=== PATIENT | female | born 1995 | race Caucasian/White ===

== ENCOUNTER → 2022-01-23 | Outpatient (CLI) | payer OTHER ==
[~2022-01-23] MED LIST: CBD OIL SL; DAILY VALUE1 EACH PO; FENUGREEK PO; FLAXSEED OIL PO; GARLIC OIL PO; HYDROCODON-ACE1 EAC2 PO; NAPROSYN500 MG PO; PROAIR HFA8.5 GM INH; VALACYCLOVIR500 MG PO; VITAMIN D3 PO; VITAMIN E200 UNI3 PO; ZOFRAN 4 MG TAB4 MG PO
[2022-01-23 10:49] LABS: HEMOGLOBIN 12.6 gm/dl (12.3-15.3); RED BLOOD COUNT 4.21 M/UL (4.00-5.10); WHITE BLOOD COUNT 5.9 K/UL (4.5-11.0)
== END ==
LOC: OPSV2 09:57
PROVIDERS: Obstetrics & Gynecology
DX: Z01.812 Encounter for preprocedural laboratory examination (principal); N70.11 Chronic salpingitis; Z91.040 Latex allergy status; Z88.0 Allergy status to penicillin
CPT/HCPCS: 36415; 81001; 85025

== ENCOUNTER → 2022-01-25 | Day surgery (SDC) | payer OTHER | END | disposition home or self-care (01) | LOC: OR 06:41 | DX: N70.11 Chronic salpingitis (principal); F17.290 Nicotine dependence, other tobacco product, uncomplicated; N93.8 Other specified abnormal uterine and vaginal bleeding; K21.9 Gastro-esophageal reflux disease without esophagitis; Z86.16 Personal history of COVID-19; Z98.51 Tubal ligation status; Z88.0 Allergy status to penicillin; Z20.822 Contact with and (suspected) exposure to COVID-19; Z90.49 Acquired absence of other specified parts of digestive tract; Z88.2 Allergy status to sulfonamides | CPT/HCPCS: 84703; J1100; J1170; J1580; J1885; J2001; J2250; J2405; J2704; J2710; J2795; J3010; J7120 ==